=== PATIENT | female | born 1995 | race Caucasian/White ===

== ENCOUNTER 2020-06-13 10:49 | Emergency (ER) | payer OTHER | END 2020-06-13 12:51 | disposition home or self-care (01) | LOC: ER1 10:49 | DX: T83.39XA Other mechanical complication of intrauterine contraceptive device, initial encounter (principal); R10.2 Pelvic and perineal pain; Y76.8 Miscellaneous obstetric and gynecological devices associated with adverse incidents, not elsewhere classified; Z90.49 Acquired absence of other specified parts of digestive tract | CPT/HCPCS: 76830; 81001; 84703; 99284 ==